=== PATIENT | male | born 1985 | race Caucasian/White ===

== ENCOUNTER 2020-06-30 09:10 | Emergency (ER) | payer OTHER ==
[2020-06-30 09:48] LABS: RED BLOOD COUNT 4.61 M/UL (4.20-5.50); WHITE BLOOD COUNT 11.6 K/UL (4.5-11.0)
[2020-06-30 10:09] LABS: BUN/CREATININE RATIO 17 (0-10)
[2020-06-30] MEDS ORDERED: K-DUR TAB 20 M20 MEQ PO (11:31)
== END 2020-06-30 11:37 | disposition home or self-care (01) ==
LOC: ER1 09:10
PROVIDERS: Physician Assistant
DX: R10.9 Unspecified abdominal pain (principal); E87.6 Hypokalemia; I10 Essential (primary) hypertension; Z90.89 Acquired absence of other organs
CPT/HCPCS: 80053; 81001; 85025; 99284; Q9967